=== PATIENT | male | born 1990 | race Caucasian/White ===

== ENCOUNTER 2018-05-02 17:15 | Inpatient (IN) | payer MEDICAID ==
[~2018-05-02] VITALS: Ht 167.6 cm; Wt 73.9 kg
[2018-05-02 17:45] VITALS: Ht 167.6 cm; Wt 73.9 kg
[2018-05-02 20:50] LABS: BASOPHIL % 0.3 % (0-2); PLATELET COUNT 369 x10^3mcL (130-400); RED CELL DISTRIBUTION WIDTH 12.8 % (11.5-14.5)
[2018-05-02 20:59] LABS: CALCIUM 9.2 mg/dL (8.5-10.1); CARBON DIOXIDE 29.3 mmol/L (21-32); CHLORIDE SERUM 99 mmol/L (98-107); CREATININE SERUM 0.8 mg/dL (0.7-1.3); GFR1 > 60 mL/min; GLUCOSE SERUM 89 mg/dL (74-106); POTASSIUM SERUM 3.6 mmol/L (3.5-5.1); SODIUM SERUM 138 mmol/L (136-145)
[2018-05-02 21:05] LABS: ALBUMIN 3.4 g/dL (3.4-5.0); ALKALINE PHOSPHATASE 91 U/L (46-116); ALT/SGPT 17 U/L (16-63); AST/SGOT 15 U/L (15-37); BILIRUBIN TOTAL 0.49 mg/dL (0.20-1.00); URIC ACID 2.7 mg/dL (3.5-7.2)
[2018-05-02 21:06] LABS: TOTAL PROTEIN, SERUM 8.9 g/dL (6.4-8.2)
[2018-05-02 22:04] LABS: UA SPECIFIC GRAVITY >=1.030 (1.005-1.035); microscopic required? YES; urine erythrocyte NEGATIVE (NEGATIVE)
[2018-05-02 22:17] LABS: AMPHETAMINE QUAL UR POSITIVE (See below)
[2018-05-03 00:33] LABS: MAGNESIUM 1.8 mg/dL (1.8-2.4); PHOSPHOROUS 3.6 mg/dL (2.5-4.9)
[2018-05-03 00:35] LABS: CHOLESTEROL/HDL RATIO 3.3
[2018-05-03 00:40] LABS: T3 TOTAL 1.19 ng/mL
[2018-05-03 00:45] LABS: FREE T4 1.05 ng/dL (0.76-1.46); T4(THYROXINE) 6.8 ug/dL (4.7-13.3)
[2018-05-03 00:46] VITALS: BP 94/51
[2018-05-03 05:29] VITALS: BP 127/75
[2018-05-03 06:19] LABS: BASOPHIL % 0.3 % (0-2); PLATELET COUNT 322 x10^3mcL (130-400)
[2018-05-03 06:54] LABS: CALCIUM 8.2 mg/dL (8.5-10.1); CHLORIDE SERUM 108 mmol/L (98-107); CREATININE SERUM 0.8 mg/dL (0.7-1.3); GFR1 > 60 mL/min; GLUCOSE SERUM 106 mg/dL (74-106); MAGNESIUM 1.8 mg/dL (1.8-2.4); PHOSPHOROUS 3.2 mg/dL (2.5-4.9); POTASSIUM SERUM 3.7 mmol/L (3.5-5.1); SODIUM SERUM 142 mmol/L (136-145)
[2018-05-03 07:57] VITALS: BP 110/69
[2018-05-03 11:52] VITALS: BP 127/79
[2018-05-03 18:19] VITALS: BP 138/73
[2018-05-03 20:59] VITALS: BP 134/63
[2018-05-04 05:20] VITALS: BP 129/86
[2018-05-04 07:26] LABS: BASOPHIL % 0.6 % (0-2); PLATELET COUNT 329 x10^3mcL (130-400); RED CELL DISTRIBUTION WIDTH 12.7 % (11.5-14.5)
[2018-05-04 08:02] LABS: CALCIUM 8.7 mg/dL (8.5-10.1); CARBON DIOXIDE 26.4 mmol/L (21-32); CHLORIDE SERUM 110 mmol/L (98-107); CREATININE SERUM 0.8 mg/dL (0.7-1.3); GFR1 > 60 mL/min; GLUCOSE SERUM 152 mg/dL (74-106); MAGNESIUM 2.1 mg/dL (1.8-2.4); POTASSIUM SERUM 3.1 mmol/L (3.5-5.1); SODIUM SERUM 145 mmol/L (136-145)
[2018-05-04 08:05] VITALS: BP 131/96
[2018-05-04 12:01] VITALS: BP 124/76
[2018-05-04 17:20] VITALS: BP 131/79
[2018-05-04 20:55] VITALS: BP 110/62
[2018-05-05 05:23] VITALS: BP 109/75
[2018-05-05 06:28] LABS: CALCIUM 9.1 mg/dL (8.5-10.1); CARBON DIOXIDE 23.2 mmol/L (21-32); CHLORIDE SERUM 107 mmol/L (98-107); CREATININE SERUM 0.8 mg/dL (0.7-1.3); GFR1 > 60 mL/min; GLUCOSE SERUM 98 mg/dL (74-106); MAGNESIUM 1.8 mg/dL (1.8-2.4); PHOSPHOROUS 3.7 mg/dL (2.5-4.9); POTASSIUM SERUM 3.7 mmol/L (3.5-5.1); SODIUM SERUM 143 mmol/L (136-145)
[2018-05-05 06:42] LABS: BASOPHIL % 0.8 % (0-2); PLATELET COUNT 276 x10^3mcL (130-400); RED CELL DISTRIBUTION WIDTH 13.4 % (11.5-14.5)
[2018-05-05 09:05] VITALS: BP 134/82
[2018-05-05] MEDS ORDERED: BACTRIM DS1 TAB PO (11:25)
[2018-05-05 11:46] VITALS: BP 134/82
[2018-05-05 12:05] VITALS: BP 134/82
== END 2018-05-05 14:46 | disposition home or self-care (01) | DRG 383 ==
LOC: ED 17:15 → MU 23:44
PROVIDERS: Emergency Medicine; Internal Medicine
PROC: 0J9R3ZZ Drainage of Left Foot Subcutaneous Tissue and Fascia, Percutaneous Approach (ICD-10-PCS; principal; 2018-05-02)
PROC: 06HY33Z Insertion of Infusion Device into Lower Vein, Percutaneous Approach (ICD-10-PCS; 2018-05-02)
PROC: 0J9R3ZZ Drainage of Left Foot Subcutaneous Tissue and Fascia, Percutaneous Approach (ICD-10-PCS; 2018-05-03)
DX: L03.116 Cellulitis of left lower limb (principal); N17.0 Acute kidney failure with tubular necrosis; L02.612 Cutaneous abscess of left foot; F11.20 Opioid dependence, uncomplicated; F15.20 Other stimulant dependence, uncomplicated; F17.210 Nicotine dependence, cigarettes, uncomplicated; Z68.25 Body mass index [BMI] 25.0-25.9, adult
CPT/HCPCS: 82962; 84439; 90715; C9113; J0295; J0690; J1885; J2001; J2270; J2543; J3010; J3370; J3490; J7030; J7040; Q0092

== ENCOUNTER 2019-04-07 21:20 | Emergency (ER) | payer OTHER ==
[~2019-04-07] VITALS: Ht 167.6 cm; Wt 72.8 kg
[~2019-04-07 21:20] MED LIST: BACTRIM DS1 TAB PO
[2019-04-07 23:45] VITALS: BP 122/76
== END 2019-04-07 23:45 | disposition home or self-care (01) ==
LOC: ED 21:20
DX: L02.416 Cutaneous abscess of left lower limb (principal); L03.116 Cellulitis of left lower limb
CPT/HCPCS: J0690; J1885; J2001